=== PATIENT | male | born 1965 | race Caucasian/White ===

== ENCOUNTER 2020-01-16 19:40 | Inpatient (IN) ==
--- OUTSIDE RECORDS SUMMARY | 2020-01-16 19:44 | External Medical Summary | Continuity of Care Document ---
:1965 Author Name Geneva Oh, Provider Address Unavailable Unavailable , Care Team Providers Name Role Phone Unavailable Unavailable Unavailable JADA COOK Unavailable Unavailable Unavailable Unavailable Unavailable Problems Paroxysmal ventricular tachycardia (427.1) (I47.2) Cardiomyopathy (425.4) (I42.9) Cardiac defibrillator in place (V45.02) (Z95.810) Pre-operative cardiovascular examination (V72.81) (Z01.810) Hypertension (401.9) (I10) Paroxysmal atrial fibrillation (427.31) (I48.0) Hyperlipidemia (272.4) (E78.5) Obstructive sleep apnea (327.23) (G47.33) Sinus bradycardia (427.89) (R00.1) Esophageal reflux (530.81) (K21.9) Sarcoidosis (135) (D86.9) Allergies and Adverse Reactions No Known Drug Allergies (Allergy) Medications Carvedilol 25 MG Oral Tablet; TAKE 1 TABLET TWICE DAILY. , M .D. Refills: 0 Flecainide Acetate 100 MG Oral Tablet; TAKE 1 TABLET TWICE D AILY. , M.D. Quantity: 180 Refills: 3 Zocor 40 MG Oral Tablet; TAKE 1 TABLET DAILY AT BEDTIME. , M .D. Refills: 0 predniSONE TABS; TAKE 12.5 MG Daily , M.D. Refills: 0 NexIUM 40 MG Oral Capsule Delayed Release; TAKE 1 CAPSULE DA ESTHER. , M.D. Refills: 0 Provigil 200 MG Oral Tablet; TAKE 1 TABLET DAILY. , M.D. Refills: 0 Allopurinol 300 MG Oral Tablet; Take 1 tablet daily , M.D. Quantity: 90 Refills: 3 Procedures History of Implantable Cardioverter-Defibrillator Status: Completed Immunizations Immunizations not documented Family History Mother Family history of Hypertension (V17.49) Status: Active Father Family history of Sudden/Instantaneous Cardiac (V17.41 ) Status: Active Social History - Smoking Status Never smoked tobacco Plan of Treatment Planned Observations Planned Goals not documented Results No Known Results Results not documented
--- OUTSIDE RECORDS SUMMARY | 2020-01-16 19:44 | External Medical Summary | Continuity of Care Document ---
:1965 Author Name Geneva Oh, Provider Address Unavailable Unavailable , Care Team Providers Name Role Phone Unavailable Unavailable Unavailable JADA COOK Unavailable Unavailable Unavailable Unavailable Unavailable Problems Sarcoidosis (135) (D86.9) Esophageal reflux (530.81) (K21.9) Sinus bradycardia (427.89) (R00.1) Obstructive sleep apnea (327.23) (G47.33) Hyperlipidemia (272.4) (E78.5) Paroxysmal atrial fibrillation (427.31) (I48.0) Hypertension (401.9) (I10) Pre-operative cardiovascular examination (V72.81) (Z01.810) Cardiac defibrillator in place (V45.02) (Z95.810) Cardiomyopathy (425.4) (I42.9) Paroxysmal ventricular tachycardia (427.1) (I47.2) Allergies and Adverse Reactions No Known Drug [...]
--- NOTE | 2020-01-16 20:15 | Emergency Department Note ---
Impression & Plan AICD malfunction, HTN (hypertension), AICD (automatic cardioverter/defibrillator) present ED Provider Note NAME: MAYRA ORANTES AGE: 54 SEX: M : 1965 ARRIVES VIA: Walk-In INFORMANT: Patient ED PROVIDER(S): Abraham Chacon DO CHIEF COMPLAINT: Pacemaker is buzzing HPI: Patient is a 54-year-old male who presents the ER with a past medical history of sarcoidosis which involves the heart with an AICD ([facility]) who presents the ER for feeling his chest shake over top of the pacemaker. He has no other complaints at this time. He notes his pacemaker is on a recall. He denies any headache, chest pain, shortness of breath, nausea vomiting or diarrhea. He notes he was working outside all day today and had no symptoms. Patient follows with [facility] cardiology. [place]. ROS: See above HPI for pertinent positives & negatives. A total of 10 systems reviewed and were otherwise negative. PAST MEDICAL HISTORY:See Below PAST SURGICAL HISTORY:See Below FAMILY HISTORY:See Below SOCIAL HISTORY:See Below HOME MEDICATIONS:See Below ALLERGIES:See Below VITALS:See Below PHYSICAL EXAMINATION: GENERAL: Sitting up in bed, alert, well appearing, well nourished, no distress, non-toxic EYE EXAM: normal conjunctiva. OROPHARYNX: no exudate, no erythema, lips, buccal mucosa, and tongue normal and mucous membranes are moist NECK: supple, no nuchal rigidity, no adenopathy, non-tender CHEST: Pacemaker located in left upper chest wall LUNGS: Clear to auscultation. Normal chest wall mechanics HEART: no murmurs, S1 normal and S2 normal ABDOMEN: abdomen soft, non-tender, normo-active bowel sounds, no masses, no rebound or guarding. BACK: Back is symmetrical on inspection and there is no deformity, no midline tenderness, no CVA tenderness. SKIN: no rashes and no bruising UPPER EXTREMITIES: upper extremities are grossly normal. LOWER EXTREMITIES: No pitting edema. Calves are equal bilateral NEURO EXAM: Normal sensorium, cranial nerves II-XII grossly intact, normal speech, no gross weakness of arms, no gross weakness of legs. MEDICAL DECISION MAKING: Patient is a 54-year-old male with a past medical history of an AICD who presents the ER as he felt a buzzing over his left chest. Interrogation of his AICD and after discussion with Neri from [facility] he notes there is a lead advisory secondary to the high-voltage being out of range. Recommends admission. I discussed the case with the hospitalist and also discussed the case with cardiology to give him a heads up for planning for tomorrow. Labs show no significant leukocytosis or anemia. INR was unremarkable. BMP with slightly elevated chloride. LFTs bilirubin was unremarkable. Troponin was detectable but not positive at 0.036. He denies any chest pain or shortness of breath. Was updated bedside. Triage Nursing notes reviewed. Prior medical records reviewed Vital Signs: reviewed and remarkable for hypertensive Differential diagnosis: Differential diagnoses includes but is not limited to acute coronary syndrome, myocardial infarction, pericarditis, pulmonary embolus, aortic dissection, pneumonia, pneumothorax, musculoskeletal, shingles, esophageal. ER treatment provided: See below Diagnostics interpreted by me: ECG: Atrial paced rate of 60 Left axis T wave flattening in the septal leads DWI in the anterior leads No PVCs Improved ST wave changes from 2016/last EKG in system Cardiac Monitoring: An order was placed for continuous cardiac monitoring. The monitor shows a rate of 60 with paced rhythm. Laboratory studies: As stated above and show below. Imaging studies: Portable AP upright 1 view of the chest shows no focal infiltrate or pneumothorax per my read Consultation(s): Discussed with Neri from [facility] following interrogation of the pacemaker who notes that there is a lead advisory warning on the pacemaker. High-voltage lead is out of range. Recommends admission and interrogation by EP as it may not be functioning properly. Discussed with Dr. Cesar Cortes from [facility] cardiology who agreed with admission Discussed with patient hospitalist for admission. ED COURSE: Procedures: none Critical Care: None Past Med/Surg History Social History Smoking Status: Never smoker Preferred Language: Kiswahili Feels Safe at Home: Yes Allergies Allergies Allergy/AdvReac Type Severity Reaction Status Date / Time bee venom protein (honey bee) Allergy Severe ANAPHYLAXIS Verified 01/16/20 20:55 Home Meds Home Medications Medication Instructions Recorded Confirmed baclofen 10 mg PO TID PRN 01/16/20 01/16/20 carvedilol 25 mg PO BID 01/16/20 01/16/20 epinephrine [EpiPen] 0.3 mg IM DIRECTED PRN 01/16/20 01/16/20 flecainide 100 mg PO BID 01/16/20 01/16/20 modafinil 200 mg PO DAILY 01/16/20 01/16/20 omeprazole 20 mg PO DAILY PRN 01/16/20 01/16/20 prednisone 15 mg PO DAILY 01/16/20 01/16/20 rosuvastatin 40 mg PO QPM 01/16/20 01/16/20 sildenafil 100 mg PO DIRECTED PRN 01/16/20 01/16/20 Results & Data (ED) Vital Signs Vital Signs - 24 hr 01/16/20 19:43 01/16/20 20:00 01/16/20 20:09 Temperature 36.7 C Temperature Source Oral Pulse Rate 60 60 Respiratory Rate 18 22 Respiratory Effort / Characteristics Non-Labored Respiratory Depth Normal Blood Pressure 154/85 H Blood Pressure Mean 108 Pulse Oximetry 97 98 Oxygen Delivery Method Room Air Room Air Sepsis Recent Fever Within 48 Hours No Sepsis New/Unexplained Change in Mental Status No Sepsis Action Taken by Nursing No Action Required 01/16/20 20:10 01/16/20 20:20 01/16/20 20:26 Temperature Temperature Source Pulse Rate 60 60 Respiratory Rate 27 H 28 H Respiratory Effort / Characteristics Respiratory Depth Blood Pressure Blood Pressure Mean Pulse Oximetry 98 Oxygen Delivery Method Room Air Sepsis Recent Fever Within 48 Hours Sepsis New/Unexplained Change in Mental Status Sepsis Action Taken by Nursing 01/16/20 20:30 01/16/20 20:40 01/16/20 20:41 Temperature Temperature Source Pulse Rate 60 60 60 Respiratory Rate 18 13 19 Respiratory Effort / Characteristics Respiratory Depth Blood Pressure 155/87 H Blood Pressure Mean 98 Pulse Oximetry Oxygen Delivery Method Sepsis Recent Fever Within 48 Hours Sepsis New/Unexplained Change in Mental Status Sepsis Action Taken by Nursing 01/16/20 20:50 01/16/20 21:00 01/16/20 21:01 Temperature Temperature Source Pulse Rate 60 61 Respiratory Rate 19 16 15 Respiratory Effort / Characteristics Respiratory Depth Blood Pressure 150/95 H Blood Pressure Mean 97 Pulse Oximetry 96 Oxygen Delivery Method Sepsis Recent Fever Within 48 Hours Sepsis New/Unexplained Change in Mental Status Sepsis Action Taken by Nursing 01/16/20 21:10 01/16/20 21:24 Temperature Temperature Source Pulse Rate 60 Respiratory Rate 20 Respiratory Effort / Characteristics Respiratory Depth Blood Pressure Blood Pressure Mean Pulse Oximetry Oxygen Delivery Method Room Air Sepsis Recent Fever Within 48 Hours Sepsis New/Unexplained Change in Mental Status Sepsis Action Taken by Nursing Laboratory Data Result diagrams: 01/16/20 20:40 01/16/20 20:40 Lab Results 01/16/20 01/16/20 01/16/20 Range/Units 20:40 20:40 20:40 WBC 8.58 (4.8-10.8) K/uL RBC 4.36 L (4.7-6.1) M/uL Hgb 14.2 (14.0-18.0) g/dL Hct 41.5 L (42-52) % MCV 95.2 (80-100) fL MCH 32.6 (25-34) pg MCHC 34.2 (32-36) g/dL RDW Std Deviation 46.4 H (36.4-46.3) fL RDW Coeff of Farhad 13.5 (11.5-14.5) % Plt Count 247 (130-400) K/uL MPV 9.9 (7.4-10.4) fL Immature Gran % (Auto) 0.2 % Neut % (Auto) 75.3 % Lymph % (Auto) 14.2 % [place] % (Auto) 7.0 % Eos % (Auto) 3.1 % Baso % (Auto) 0.2 % Neut # (Auto) 6.45 (1.4-6.5) K/uL Lymph # (Auto) 1.22 (1.2-3.4) K/uL [place] # (Auto) 0.60 H (0.11-0.59) K/uL Eos # (Auto) 0.27 (0-0.5) K/uL Baso # (Auto) 0.02 (0-0.2) K/uL Immature Gran # (Auto) 0.02 (0.00-0.02) K/uL PT 10.6 (9.0-12.0) Seconds INR 1.0 (0.9-1.1) APTT 22.1 (21.0-31.0) Seconds PTT Ratio 0.8 Sodium 143 (136-145) mmol/L Potassium 3.7 (3.5-5.1) mmol/L Chloride 109 H (98-107) mmol/L Carbon Dioxide 27 (21-32) mmol/L Anion Gap 7.0 (3-11) BUN 26 H (7-18) mg/dl Creatinine 1.20 (0.6-1.4) mg/dl Est Cr Clr Drug Dosing 86.6 ml/min Est GFR ( Amer) 77.9 Est GFR (Non-Af Amer) 67.2 BUN/Creatinine Ratio 21.6 H (10-20) Glucose 79 (70-99) mg/dl Calcium 9.4 (8.5-10.1) mg/dl Total Bilirubin 0.6 (0.2-1) mg/dl AST 26 (15-37) U/L ALT 51 (12-78) U/L Alkaline Phosphatase 33 L (45-117) U/L Troponin I 0.036 (0-0.045) ng/ml Total Protein 7.4 (6.4-8.2) gm/dl Albumin 4.2 (3.4-5.0) gm/dl Globulin 3.2 (2.5-4.0) gm/dl Albumin/Globulin Ratio 1.3 (0.9-2) Lipase 105 (73-393) U/L Discharge Plan Visit Data Chief Complaint: Cardiac Assessment Stated Complaint: PACEMAKER BATTER IS RUNNING LOW ED Provider: Abraham Chacon Discharge Problem: AICD malfunction, HTN (hypertension), AICD (automatic cardioverter/defibrillator) present Discharge Instructions Interventions: ED Discharge Assessment Last Done: 01/16/20 21:24 Discharge Problem: AICD malfunction Qualifiers: Encounter type: initial encounter Qualified Code(s): T82.118A - Breakdown (mechanical) of other cardiac electronic device, initial encounter HTN (hypertension) Qualifiers: Hypertension type: unspecified Qualified Code(s): I10 - Essential (primary) hypertension
[2020-01-16 20:48] LABS: Basophils # (auto) 0.02 K/uL (0-0.2); Basophils % (auto) 0.2 %; Eosinophils # (auto) 0.27 K/uL (0-0.5); Eosinophils % (auto) 3.1 %; Hematocrit (blood only) 41.5 % (42-52); Hemoglobin 14.2 g/dL (14.0-18.0); Immature Granulocytes # (auto) 0.02 K/uL (0.00-0.02); Immature Granulocytes % (auto) 0.2 %; Lymphocytes # (auto) 1.22 K/uL (1.2-3.4); Lymphocytes % (auto) 14.2 %; Mean Corpuscular Hemoglobin 32.6 pg (25-34); Mean Corpuscular Hgb Conc 34.2 g/dL (32-36); Mean Corpuscular Volume 95.2 fL (80-100); Mean Platelet Volume 9.9 fL (7.4-10.4); Neutrophils # (auto) 6.45 K/uL (1.4-6.5); Neutrophils % (auto) 75.3 %; Platelet Count 247 K/uL (130-400); RDW Coefficient of Variation 13.5 % (11.5-14.5); RDW Standard Deviation 46.4 fL (36.4-46.3); Red Blood Count 4.36 M/uL (4.7-6.1); White Blood Count 8.58 K/uL (4.8-10.8)
[2020-01-16 20:58] LABS: Partial Thromboplastin Ratio 0.8; Partial Thromboplastin Time 22.1 Seconds (21.0-31.0); Prothrombin Time 10.6 Seconds (9.0-12.0)
[2020-01-16 21:04] LABS: Albumin Level 4.2 gm/dl (3.4-5.0); BUN Creatinine Ratio 21.6 (10-20); Calcium 9.4 mg/dl (8.5-10.1); Creatinine Clr Calc Pharmacy 86.6 ml/min; Est GFR (African American) 77.9; Est GFR (Non-African American) 67.2; Potassium 3.7 mmol/L (3.5-5.1)
[2020-01-16 21:09] LABS: Albumin Globulin Ratio 1.3 (0.9-2); Bilirubin,Total 0.6 mg/dl (0.2-1); Globulin 3.2 gm/dl (2.5-4.0); Total Protein 7.4 gm/dl (6.4-8.2); Troponin I 0.036 ng/ml (0-0.045)
--- NOTE | 2020-01-16 21:46 | History & Physical Report ---
Date of Service January 16, 2020 Assessment & Plan (1) AICD malfunction: (2) Cardiac sarcoidosis: (3) Nonischemic cardiomyopathy: Patient with history of cardiac sarcoidosis, diagnosed in 2006, followed at [facility], currently following w/Dr. Rice of [facility] cardiology -continue home prednisone, 12.5 mg daily for sarcoidosis -Presents with possible AICD malfunction, patient registered vibration over his chest, thought that maybe battery was running low -Cardiology consulted by ED provider, Dr. Shanks, will further evaluate w/ EP tomorrow -Continue to closely monitor on telemetry -Continue Coreg (4) Hyperlipidemia: -Continue home Crestor (5) Prediabetes: -Continue to monitor blood glucose levels (6) SHELL on CPAP: -CPAP at bedtime (7) Paroxysmal A-fib: -Continue home flecainide (8) Narcolepsy: -Continue home modafinil (9) Gout: -Continue home allopurinol DVT ppx - SCDs Code: Full Disposition : home when medically stable Admission and Anticipated Discharge Date Admission Date: January 16, 2020 History of Present Illness Chief Complaint: Possible AICD malfunction Primary Care Provider: Sean Madera MD 54-year-old male, with history of nonischemic cardiomyopathy secondary to cardiac sarcoidosis, diagnosed in 2006 (initially followed at [facility], currently follows with Dr. Rice of [facility] cardiology), status post dual- chamber ICD, paroxysmal A. fib, paroxysmal VT, hypertension, prediabetes, SHELL on CPAP, who presents with possible AICD malfunction. Patient was working outside today, and then later was doing laundry in the house when he noticed vibration over his chest, due to his pacemaker. He states this usually means that his battery is running low. He presented to the ED for evaluation. He otherwise did not feel any chest pain, palpitations, dizziness, lightheadedness, fevers or chills. Also denies any abdominal pain, nausea or vomiting. He denies exerting himself, and states that is his usual activity. Patient's device was interrogated, and ED provider discussed with tech from [facility] who noted that there is a lead advisory warning on the pacemaker. High-voltage lead is out of range. Recommended admission and interrogation by EP as it may not be functioning properly. ED provider also consulted cardiology, Dr. Shanks, who will be further evaluating the patient with EP tomorrow, and who agrees with the admission. Allergies Allergy/AdvReac Type Severity Reaction Status Date / Time bee venom protein (honey bee) Allergy Severe ANAPHYLAXIS Verified 01/16/20 20:55 Home Medications Home Medications Medication Instructions Recorded Confirmed Type baclofen 10 mg PO TID PRN 01/16/20 01/16/20 History carvedilol 25 mg PO BID 01/16/20 01/16/20 History epinephrine [EpiPen] 0.3 mg IM DIRECTED PRN 01/16/20 01/16/20 History flecainide 100 mg PO BID 01/16/20 01/16/20 History modafinil 200 mg PO DAILY 01/16/20 01/16/20 History omeprazole 20 mg PO DAILY PRN 01/16/20 01/16/20 History prednisone 15 mg PO DAILY 01/16/20 01/16/20 History rosuvastatin 40 mg PO QPM 01/16/20 01/16/20 History sildenafil 100 mg PO DIRECTED PRN 01/16/20 01/16/20 History Past Med/Surg History Medical History (Updated 01/16/20 @ 22:01 by Don Harrison MD) Cardiac sarcoidosis Gout Hyperlipidemia Narcolepsy Nonischemic cardiomyopathy SHELL on CPAP Paroxysmal A-fib Prediabetes Surgical History (Updated 01/16/20 @ 22:07 by Don Harrison MD) AICD (automatic cardioverter/defibrillator) present History of bronchoscopy History of carpal tunnel surgery Hx of appendectomy S/P hernia repair Family History (Updated 01/16/20 @ 22:04 by Don Harrison MD) Father , arrhythmia, at age 65 Arrhythmia Diabetes Hypertension Heart disease Social History Smoking Status: Never smoker Second Hand Exposure: No; Do You Dip or Chew Tobacco: No; Hx Alcohol Use: Yes Alcohol type: hard liquor Hx Substance Use: No Preferred Language: Pashto Communication Ability: Effective Investigator Welfare Required: No Beliefs That Will Affect Care: None Current Living Situation: Family Other Information That Helps Us Care for You: No Feels Safe at Home: Yes Safety Concerns: Feels Safe At This Time Review of Systems Review of Systems: All systems reviewed & are unremarkable except as noted in HPI & below Constitutional: no fever and no chills Eyes: no problem reported Ear, Nose, Mouth, Throat: no problem reported Respiratory: no cough, no dyspnea and no dyspnea on exertion Cardiovascular: no chest pain, no palpitations and no edema Gastrointestinal: no abdominal pain, no nausea and no vomiting Genitourinary: no problem reported Musculoskeletal: no problem reported Integumentary: no problem reported Neurologic: no problem reported Psychiatric: no problem reported Endocrine: no problem reported Hematologic / Lymphatic: no problem reported Allergy / Immunological: no problem reported Physical Exam Physical Exam: middle aged male laying in bed, in NAD Constitutional: WD/WN, vitals as above no acute distress and not ill appearing Eyes: PERRL, conjunctivae normal, anicteric sclerae EOM intact bilaterally ENMT: external ear and nose normal, oropharynx normal Neck: trachea midline, no thyromegaly normal visual inspection Respiratory: normal respiratory effort, lungs clear to auscultation Auscultation: no crackles, no rhonchi and no wheezes Cardiovascular: RRR, no murmur, no edema Chest (Breasts): Chest: + pacemaker Gastrointestinal (Abdomen): Inspection/Auscultation: abdomen normal to inspection and normal bowel sounds; abdomen not distended Percussion/Palpation: abdomen soft; abdomen nontender, no guarding and abdomen not rigid Musculoskeletal: no cyanosis or clubbing, extremities motor strength 5/5 Head/Neck/Chest: normocephalic, head atraumatic and neck supple Extremities: extremities normal to inspection Skin: no rashes, warm and dry no lesions and no ulcers Neurologic: PERRL, EOMI, accommodation nl, no face palsy, no dysarthria moves all extremities Psychiatric: A+Ox3, euthymic affect Genitourinary: no CVA tenderness Results & Data Results & Data ([facility]) Vital Signs (Past 12 Hours) Vital Signs Temp Pulse Resp BP Pulse Ox 01/16/20 21:10 60 20 01/16/20 21:01 61 15 150/95 H 96 01/16/20 21:00 60 16 01/16/20 20:50 19 01/16/20 20:41 60 19 01/16/20 20:40 60 13 155/87 H 01/16/20 20:30 60 18 01/16/20 20:26 98 01/16/20 20:20 60 28 H 01/16/20 20:10 60 27 H 01/16/20 20:09 98 01/16/20 20:00 60 22 01/16/20 19:43 36.7 C 60 18 154/85 H 97 Laboratory Results 01/16/20 01/16/20 01/16/20 Range/Units 20:40 20:40 20:40 WBC 8.58 (4.8-10.8) K/uL RBC 4.36 L (4.7-6.1) M/uL Hgb 14.2 (14.0-18.0) g/dL Hct 41.5 L (42-52) % MCV 95.2 (80-100) fL MCH 32.6 (25-34) pg MCHC 34.2 (32-36) g/dL RDW Std Deviation 46.4 H (36.4-46.3) fL RDW Coeff of Farhad 13.5 (11.5-14.5) % Plt Count 247 (130-400) K/uL MPV 9.9 (7.4-10.4) fL Immature Gran % (Auto) 0.2 % Neut % (Auto) 75.3 % Lymph % (Auto) 14.2 % [place] % (Auto) 7.0 % Eos % (Auto) 3.1 % Baso % (Auto) 0.2 % Neut # (Auto) 6.45 (1.4-6.5) K/uL Lymph # (Auto) 1.22 (1.2-3.4) K/uL [place] # (Auto) 0.60 H (0.11-0.59) K/uL Eos # (Auto) 0.27 (0-0.5) K/uL Baso # (Auto) 0.02 (0-0.2) K/uL Immature Gran # (Auto) 0.02 (0.00-0.02) K/uL PT 10.6 (9.0-12.0) Seconds INR 1.0 (0.9-1.1) APTT 22.1 (21.0-31.0) Seconds PTT Ratio 0.8 Sodium 143 (136-145) mmol/L Potassium 3.7 (3.5-5.1) mmol/L Chloride 109 H (98-107) mmol/L Carbon Dioxide 27 (21-32) mmol/L Anion Gap 7.0 (3-11) BUN 26 H (7-18) mg/dl Creatinine 1.20 (0.6-1.4) mg/dl Est Cr Clr Drug Dosing 86.6 ml/min Est GFR ( Amer) 77.9 Est GFR (Non-Af Amer) 67.2 BUN/Creatinine Ratio 21.6 H (10-20) Glucose 79 (70-99) mg/dl Calcium 9.4 (8.5-10.1) mg/dl Magnesium 2.1 (1.8-2.4) mg/dl Total Bilirubin 0.6 (0.2-1) mg/dl AST 26 (15-37) U/L ALT 51 (12-78) U/L Alkaline Phosphatase 33 L (45-117) U/L Troponin I 0.036 (0-0.045) ng/ml Total Protein 7.4 (6.4-8.2) gm/dl Albumin 4.2 (3.4-5.0) gm/dl Globulin 3.2 (2.5-4.0) gm/dl Albumin/Globulin Ratio 1.3 (0.9-2) Lipase 105 (73-393) U/L Diagnostic Findings CXR reviewed Code Status & VTE Plan VTE Prophylaxis Plan VTE Prophylaxis will be ordered: Yes (1) AICD malfunction Encounter type: initial encounter Qualified Code(s): T82.118A - Breakdown (mechanical) of other cardiac electronic device, initial encounter
[2020-01-16] MEDS ORDERED: POTASSIUM CHLORIDE 20 MEQ TABCR PO STA (21:47)
[2020-01-16 21:51] LABS: Magnesium 2.1 mg/dl (1.8-2.4)
[2020-01-16] MEDS ORDERED: ACETAMINOPHEN 325 MG TAB PO PRN (22:27)
[2020-01-16] MEDS ORDERED: PANTOprazole 40 MG TAB PO PRN (22:46)
[2020-01-16] MEDS: FLECAINIDE ACETATE 100 MG TABLET PO SCH (23:04)
[2020-01-16] MEDS: carvediloL 25 MG TAB PO SCH (23:04)
[2020-01-17 07:17] LABS: BUN Creatinine Ratio 24.2 (10-20); Creatinine Clr Calc Pharmacy 100.5 ml/min; Est GFR (African American) 99.5; Est GFR (Non-African American) 85.8; Magnesium 2.2 mg/dl (1.8-2.4); Potassium 3.6 mmol/L (3.5-5.1)
--- NOTE | 2020-01-17 07:29 | XRay Report ---
SINGLE VIEW CHEST CLINICAL HISTORY: Atypical chest pain. FINDINGS: An AP, portable, upright chest radiograph is compared to study dated 02/27/2014. The examina tion is degraded by portable technique and apical lordotic positioning. A 2-lead cardiac pacemaker is unchanged in position and partially obscures the left mid chest. The heart is enlarged. The pulmonar y vasculature is noncongested. Pleural thickening versus subpleural fat deposition at the left latera l lung base is unchanged from 2014. No airspace consolidation or large pleural effusion is identified . No pneumothorax is seen. The bony thorax is grossly intact. IMPRESSION: Cardiomegaly and cardiac pacemaker. There is no radiographic evidence of congestive failu re. ACT 112: Negative or not required by law. Electronically signed by: Michel Horne M.D. 01/17/2020 7:27 AM
[2020-01-17] MEDS: carvediloL 25 MG TAB PO SCH ×2 (09:43→19:50)
[2020-01-17] MEDS: FLECAINIDE ACETATE 100 MG TABLET PO SCH ×2 (09:44→19:49)
[2020-01-17] MEDS: predniSONE 5 MG TAB PO SCH (09:44)
[2020-01-17] MEDS: allopurinoL 100 MG TAB PO SCH (09:45)
[2020-01-17] MEDS: modafiniL 100 MG TAB PO SCH (09:59)
--- NOTE | 2020-01-17 10:26 | Cardiology Consultation ---
Date of Consultation January 17, 2020 Assessment & Plan (1) AICD malfunction: (2) Sarcoidosis: (3) Paroxysmal A-fib: Electrophysiology consulted for further evaluation of ventricular lead malfunction/elevated impedance. I have concerns regarding possible lead fracture. He has a [employer] device with Riata lead recall. Continue current cardiovascular medications including flecainide, carvedilol, and rosuvastatin. History of Present Illness Reason for Consultation: Elevated ICD ventricular lead impedance Requesting Physician: Dr. Reid Attending Physician: Ti Reid MD History of Present Illness 54-year-old male presented to the emergency department with sensation of "ICD vibrating". Patient reports a similar sensation with low battery in the past. Feeling well from a cardiovascular standpoint. Working in his yard all day Friday. No chest discomfort or unusual shortness of breath. Denies palpitations, lightheadedness, dizziness, syncope, near syncope, or ICD discharges. No orthopnea, PND, lower extremity edema, or claudication. Denies any recent medication changes or noncompliance. Offers no concerns/complaints this time. Allergies Allergy/AdvReac Type Severity Reaction Status Date / Time bee venom protein (honey bee) Allergy Severe ANAPHYLAXIS Verified 01/16/20 20:55 Home Medications Home Medications Medication Instructions Recorded Confirmed Type baclofen 10 mg PO TID PRN 01/16/20 01/16/20 History carvedilol 25 mg PO BID 01/16/20 01/16/20 History epinephrine [EpiPen] 0.3 mg IM DIRECTED PRN 01/16/20 01/16/20 History flecainide 100 mg PO BID 01/16/20 01/16/20 History modafinil 200 mg PO DAILY 01/16/20 01/16/20 History omeprazole 20 mg PO DAILY PRN 01/16/20 01/16/20 History prednisone 15 mg PO DAILY 01/16/20 01/16/20 History rosuvastatin 40 mg PO QPM 01/16/20 01/16/20 History sildenafil 100 mg PO DIRECTED PRN 01/16/20 01/16/20 History Patient History Medical History Cardiac sarcoidosis Gout Hyperlipidemia Narcolepsy Nonischemic cardiomyopathy SHELL on CPAP Paroxysmal A-fib Prediabetes Surgical History AICD (automatic cardioverter/defibrillator) present History of bronchoscopy History of carpal tunnel surgery Hx of appendectomy S/P hernia repair Family History Father , arrhythmia, at age 65 Arrhythmia Diabetes Hypertension Heart disease Social History Smoking Status: Never smoker Second Hand Exposure: No; Do You Dip or Chew Tobacco: No; Hx Alcohol Use: Yes Alcohol type: hard liquor Hx Substance Use: No Preferred Language: Irish Communication Ability: Effective Set Up Mechanic Heading Machines Required: No Beliefs That Will Affect Care: None Current Living Situation: Family Other Information That Helps Us Care for You: No Feels Safe at Home: Yes Safety Concerns: Feels Safe At This Time Review of Systems Review of Systems: All systems reviewed & are unremarkable except as noted in HPI & below Physical Exam Constitutional: well developed and well nourished; no acute distress and not ill appearing Eyes: PERRL, conjunctivae normal, anicteric sclerae Respiratory: normal respiratory effort, lungs clear to auscultation Auscultation: no crackles, no rales, no rhonchi and no wheezes Cardiovascular: Rate/Rhythm: regular rate and regular rhythm Heart Sounds: normal S1 and normal S2; no gallop, no murmur and no cardiac rub Palpation: normal PMI Vessels: radial pulses present; no JVD and no carotid bruit Extremities: normal capillary refill; no edema Gastrointestinal (Abdomen): Inspection/Auscultation: abdomen normal to inspection and normal bowel sounds; abdomen not distended Percussion/Palpation: abdomen soft; abdomen nontender, no guarding and abdomen not rigid Musculoskeletal: Head/Neck/Chest: normocephalic and head atraumatic Extremities: strength 5/5 throughout; no cyanosis, no clubbing and no petechiae Skin: no rashes, warm and dry Neurologic: CN's II-XI intact bilaterally and moves all extremities; no focal motor deficits Speech / Cognition: normal speech Psychiatric: A+Ox3, euthymic affect Results & Data ([facility]) Vital Signs (Past 12 Hours) Vital Signs Temp Pulse Pulse Resp BP Pulse Ox 01/17/20 07:28 37.0 C 58 L 18 131/59 L 97 01/17/20 03:25 60 18 95 01/17/20 03:18 36.4 C L 57 L 18 129/81 98 01/17/20 00:55 62 01/16/20 23:12 36.6 C 60 18 138/84 95 01/16/20 22:51 62 01/16/20 22:50 60 16 96 (1) AICD malfunction Encounter type: initial encounter Qualified Code(s): T82.118A - Breakdown (mechanical) of other cardiac electronic device, initial encounter
--- NOTE | 2020-01-17 13:26 | Hospitalist Progress Note ---
Date of Service January 17, 2020 Assessment & Plan (1) AICD malfunction: (2) Cardiac sarcoidosis: (3) Nonischemic cardiomyopathy: Patient with history of cardiac sarcoidosis, diagnosed in 2006, followed at [facility], currently following w/Dr. Rice of [facility] cardiology -continue home prednisone, 12.5 mg daily for sarcoidosis -Presents with possible AICD malfunction Possible ventricular lead malfunction/elevated impedance, question lead fracture -Ict Help Desk Technician consulted Case being discussed with company doctor Continue usual carvedilol, flecainide (4) Hyperlipidemia: -Continue home Crestor (5) Prediabetes: -Continue to monitor blood glucose levels (6) SHELL on CPAP: -CPAP at bedtime (7) Paroxysmal A-fib: -Continue home flecainide (8) Narcolepsy: -Continue home modafinil (9) Gout: -Continue home allopurinol DVT ppx - SCDs Code: Full Disposition : home when medically stable Admission and Anticipated Discharge Date Admission Date: January 16, 2020 Subjective Follow-up for AICD malfunction Seen resting in bed, comfortable, no distress Denies chest pain, palpitations, dizziness, shortness of breath No firing of AICD noted jet inspector reviewed Denies any other symptoms Review of Systems Review of Systems: All systems reviewed & are unremarkable except as noted in HPI & below Physical Exam Physical Exam: General- oriented x 3, not in distress, speaks in sentences with no effort or accessory muscle use Head- atraumatic Eyes- PERRL, EOMI, anicteric ENT- oropharynx clear Neck- supple, no JVD, no adenopathy, no thyromegaly; carotids +2/2, no bruits appreciated Lungs- clear to auscultation bilaterally, no rales/wheezes Heart- normal rate, regular rhythm; no murmur, no gallop, no rub appreciated Pacemaker in place left chest wall-no signs of infection Abdomen- normal bowel sounds, nondistended, soft, nontender, no masses or hepatosplenomegaly Extremities- no pretibial edema, no calf tenderness; peripheral pulses intact Neuro- alert, oriented x 3; CN 2-12 grossly intact; motor 5/5 bilaterally;sensation 100% on all extremities; no other gross focal neurologic deficits Skin- warm & dry Results & Data Results & Data ([facility]) Vital Signs (Past 12 Hours) Vital Signs Temp Pulse Pulse Resp BP Pulse Ox 01/17/20 12:18 36.9 C 62 22 128/74 95 01/17/20 07:28 37.0 C 58 L 18 131/59 L 97 01/17/20 03:25 60 18 95 01/17/20 03:18 36.4 C L 57 L 18 129/81 98 Laboratory Results Laboratory Results - last 24 hr 01/16/20 01/16/20 01/16/20 20:40 20:40 20:40 WBC 8.58 RBC 4.36 L Hgb 14.2 Hct 41.5 L MCV 95.2 MCH 32.6 MCHC 34.2 RDW Std Deviation 46.4 H RDW Coeff of Farhad 13.5 Plt Count 247 MPV 9.9 Immature Gran % (Auto) 0.2 Neut % (Auto) 75.3 Lymph % (Auto) 14.2 [place] % (Auto) 7.0 Eos % (Auto) 3.1 Baso % (Auto) 0.2 Neut # (Auto) 6.45 Lymph # (Auto) 1.22 [place] # (Auto) 0.60 H Eos # (Auto) 0.27 Baso # (Auto) 0.02 Immature Gran # (Auto) 0.02 PT 10.6 INR 1.0 APTT 22.1 PTT Ratio 0.8 Sodium 143 Potassium 3.7 Chloride 109 H Carbon Dioxide 27 Anion Gap 7.0 BUN 26 H Creatinine 1.20 Est Cr Clr Drug Dosing 86.6 Est GFR ( Amer) 77.9 Est GFR (Non-Af Amer) 67.2 BUN/Creatinine Ratio 21.6 H Glucose 79 Calcium 9.4 Magnesium 2.1 Total Bilirubin 0.6 AST 26 ALT 51 Alkaline Phosphatase 33 L Troponin I 0.036 Total Protein 7.4 Albumin 4.2 Globulin 3.2 Albumin/Globulin Ratio 1.3 Lipase 105 Hepatitis C Ab Screen 01/17/20 01/17/20 05:57 05:57 WBC RBC Hgb Hct MCV MCH MCHC RDW Std Deviation RDW Coeff of Farhad Plt Count MPV Immature Gran % (Auto) Neut % (Auto) Lymph % (Auto) [place] % (Auto) Eos % (Auto) Baso % (Auto) Neut # (Auto) Lymph # (Auto) [place] # (Auto) Eos # (Auto) Baso # (Auto) Immature Gran # (Auto) PT INR APTT PTT Ratio Sodium 143 Potassium 3.6 Chloride 109 H Carbon Dioxide 28 Anion Gap 6.0 BUN 24 H Creatinine 0.98 Est Cr Clr Drug Dosing 100.5 Est GFR ( Amer) 99.5 Est GFR (Non-Af Amer) 85.8 BUN/Creatinine Ratio 24.2 H Glucose 83 Calcium 9.0 Magnesium 2.2 Total Bilirubin AST ALT Alkaline Phosphatase Troponin I Total Protein Albumin Globulin Albumin/Globulin Ratio Lipase Hepatitis C Ab Screen Neg (1) AICD malfunction Encounter type: initial encounter Qualified Code(s): T82.118A - Breakdown (mechanical) of other cardiac electronic device, initial encounter
[2020-01-17] MEDS ORDERED: PROPOFOL IV EMULSION 10 MG/ML 20 ML VIAL IV ONE (16:19)
--- NOTE | 2020-01-17 16:27 | Anesthesiology Consultation ---
Date of Service January 17, 2020 Assessment & Plan (1) Encounter for pre-operative examination: Chart Review Chart Review: Acceptable Risk for Surgery Consults Requested none ASA ASA4 Proposed Anesthesia Anesthesia Type: MAC Risk / Benefits Reviewed With: PT / POA / Parent / Guardian, Accepts Plan and Informed Consent Obtained History Surgery Operation Date: 01/17/20 16:15 Proposed Procedures p Cardioversion - Erickson Fountain MD Height/Weight Height: 5 ft 11 in Weight: 98.1 kg Allergies Allergy/AdvReac Type Severity Reaction Status Date / Time bee venom protein (honey bee) Allergy Severe ANAPHYLAXIS Verified 01/16/20 20:55 Medications Home Medications Medication Instructions Recorded Confirmed Last Taken baclofen 10 mg PO TID PRN 01/16/20 01/16/20 Unknown carvedilol 25 mg PO BID 01/16/20 01/16/20 01/16/20 08:00 epinephrine [EpiPen] 0.3 mg IM DIRECTED PRN 01/16/20 01/16/20 Unknown flecainide 100 mg PO BID 01/16/20 01/16/20 01/16/20 08:00 modafinil 200 mg PO DAILY 01/16/20 01/16/20 01/16/20 omeprazole 20 mg PO DAILY PRN 01/16/20 01/16/20 Unknown prednisone 15 mg PO DAILY 01/16/20 01/16/20 01/16/20 rosuvastatin 40 mg PO QPM 01/16/20 01/16/20 01/15/20 sildenafil 100 mg PO DIRECTED PRN 01/16/20 01/16/20 Unknown Active Medications Generic Name Dose Route Start Last Admin Trade Name Kimberly PRN Reason Stop Dose Admin Allopurinol 100 mg 01/17/20 09:00 01/17/20 09:45 Zyloprim PO 02/16/20 08:59 100 mg QAM ABHILASH Administration Carvedilol 25 mg 01/16/20 22:27 01/17/20 09:43 Coreg PO 02/15/20 22:26 25 mg BID ABHILASH Administration Flecainide Acetate 100 mg 01/16/20 22:27 01/17/20 09:44 Tambocor PO 02/15/20 22:26 100 mg BID ABHILASH Administration Modafinil 200 mg 01/17/20 09:00 01/17/20 09:59 Provigil PO 02/16/20 08:59 200 mg DAILY ABHILASH Administration Pantoprazole Sodium 40 mg 01/16/20 22:46 01/17/20 09:45 Protonix PO 02/15/20 22:45 40 mg DAILY PRN Administration DYSPEPSIA/INDIGESTION Prednisone 12.5 mg 01/17/20 09:00 01/17/20 09:44 Prednisone PO 02/16/20 08:59 12.5 mg DAILY ABHILASH Administration Past Medical History Medical History Cardiac sarcoidosis Gout Hyperlipidemia Narcolepsy Nonischemic cardiomyopathy SHELL on CPAP Paroxysmal A-fib Prediabetes Exercise / Class Metabolic Activity II 4-5 Yardwork/Stairs/Walk up hill Past Family History Family History Father , arrhythmia, at age 65 Arrhythmia Diabetes Hypertension Heart disease Past Surgical History Surgical History AICD (automatic cardioverter/defibrillator) present History of bronchoscopy History of carpal tunnel surgery Hx of appendectomy S/P hernia repair Past Anesthesia History No Hx of Anesthesia Complications and No Family Hx of Anesthesia Complications History of PONV No Hx of PONV and No Hx of Motion Sickness Social History Smoking Status: Never smoker Do You Dip or Chew Tobacco: No Hx Alcohol Use: Yes Alcohol type: hard liquor alcohol intake frequency: a few times a month Hx Substance Use: No substance use type: does not use Physical Exam Vital Signs Last Vital Signs Temp 97.9 F 01/17/20 15:26 Pulse 60 01/17/20 16:14 Resp 14 01/17/20 16:14 BP 144/92 H 01/17/20 16:14 Pulse Ox 96 01/17/20 16:14 ENMT Mouth: + chipped teeth (Lower front) Thyromental Distance: > or= 3.5 Finger Breadths Mallampati Class: III Neck normal visual inspection Respiratory normal respiratory effort Auscultation: lungs clear to auscultation bilaterally Cardiovascular Rate/Rhythm: regular rate and regular rhythm Testing Laboratory Results 01/16/20 20:40 01/17/20 05:57 PT 10.6 Seconds (9.0-12.0) 01/16/20 20:40 INR 1.0 (0.9-1.1) 01/16/20 20:40 APTT 22.1 Seconds (21.0-31.0) 01/16/20 20:40
--- NOTE | 2020-01-17 16:46 | Anesthesiology Progress Note ---
Date of Service January 17, 2020 Anesthesia Post Procedure Vital Signs Vital Signs: Temp Pulse Pulse Pulse Resp BP BP 01/17/20 16:41 77 16 137/84 01/17/20 16:14 60 14 144/92 H 01/17/20 16:00 60 01/17/20 15:26 97.9 F 59 L 18 128/83 01/17/20 12:18 98.4 F 62 22 128/74 01/17/20 08:00 60 01/17/20 07:28 98.6 F 58 L 18 131/59 L 01/17/20 03:25 60 18 01/17/20 03:18 97.5 F L 57 L 18 129/81 01/17/20 00:55 62 01/16/20 23:12 97.9 F 60 18 138/84 01/16/20 22:51 62 01/16/20 22:50 60 16 01/16/20 21:46 97.9 F 76 18 01/16/20 21:10 60 20 01/16/20 21:01 61 15 150/95 H 01/16/20 21:00 60 16 01/16/20 20:50 19 01/16/20 20:41 60 19 01/16/20 20:40 60 13 155/87 H 01/16/20 20:30 60 18 01/16/20 20:26 01/16/20 20:20 60 28 H 01/16/20 20:10 60 27 H 01/16/20 20:09 01/16/20 20:00 60 22 01/16/20 19:43 98.1 F 60 18 154/85 H BP Pulse Ox 01/17/20 16:41 98 01/17/20 16:14 96 01/17/20 16:00 01/17/20 15:26 94 01/17/20 12:18 95 01/17/20 08:00 01/17/20 07:28 97 01/17/20 03:25 95 01/17/20 03:18 98 01/17/20 00:55 01/16/20 23:12 95 01/16/20 22:51 01/16/20 22:50 96 01/16/20 21:46 153/76 H 95 01/16/20 21:10 01/16/20 21:01 96 01/16/20 21:00 01/16/20 20:50 01/16/20 20:41 01/16/20 20:40 01/16/20 20:30 01/16/20 20:26 98 01/16/20 20:20 01/16/20 20:10 01/16/20 20:09 98 01/16/20 20:00 01/16/20 19:43 97 Transfer of Care Handoff Completed per policy Notes Mental Status: alert / awake / arousable and participated in evaluation Patient Amnestic to Procedure: Yes Nausea / Vomiting: adequately controlled Pain: adequately controlled Airway Patency, RR, SpO2: stable & adequate BP & HR: stable & adequate Hydration State: stable & adequate Anesthetic Complications: no major complications apparent and Pt Satisfied with anesthetic care
--- NOTE | 2020-01-17 17:15 | Cardiology Consultation ---
Date of Consultation January 17, 2020 Assessment & Plan (1) AICD malfunction: Patient appears to have an externalized conductor on the single view x-ray obtained at the time of admission. His lead is known to be on recall for this exact abnormality. It is unclear how this plays a role in his abnormal impedance readings, but the 2 are likely related. Unfortunately, with defibrillation threshold testing and delivery of high voltage across the lead, the impedance was quite high. This would suggest that the lead is not reliable. Given his history of appropriate defibrillation, he would be advised to have a new lead placed. Simply adding a new defibrillation lead is an option. However, this would result in an abandoned lead which would preclude any future use of MRI. Given his young age and the utility of MRI in the setting of his known cardiac condition, the I propose the option of lead extraction in order to provide him with an MRI compatible device. Unfortunately, his atrial lead is also incompatible with MRI and according to the manufacture not likely to be approved in a retrograde fashion. As such, he would require a total system extraction and reimplantation with an MRI compatible lead. After discussion with the patient and his , he believes this is actually the best option. He would like to have this procedure done at a larger institution, specifically the [facility]. While I do not believe the patient can be transferred directly to the [facility], it may be possible to discharge him with follow up at the [facility]. He will need some form of adequate protection against cardiac arrest in the setting of his device malfunction while awaiting any procedure. This could be accomplished with a wearable defibrillator. (2) Cardiac sarcoidosis: According to the patient he has preserved LV systolic function. He is on immunosuppression. He is not appear to be overtly symptomatic. No evidence of decompensated heart failure. History of Present Illness Reason for Consultation: ICD malfunction Requesting Physician: Krystal Attending Physician: Ti Reid MD History of Present Illness The patient is a 54-year-old gentleman with a history of cardiac sarcoid and prior cardiac arrest who had previously undergone implantation of dual-chamber ICD originally in 2006. Patient underwent a generator change of a [employer]as dual-chamber ICD in 2012. Yesterday the patient noted a vibration around the site of his device implant the left pectoral area. He presented to the emergency room for evaluation where he was discovered to have an alert involving the high voltage lead. He was admitted for observation. In general, he has been feeling well. He did not report any current symptoms suggestive of an acute coronary syndrome or decompensated heart failure. He has not had symptoms of chest discomfort, lightheadedness, palpitations or syncope. He does report a remote history of therapy from his device. He reports being defibrillated on 5 separate occasions including defibrillation threshold testing at the time of his recent generator change. He also reports a history of inappropriate therapies due to device programming. Allergies Allergy/AdvReac Type Severity Reaction Status Date / Time bee venom protein (honey bee) Allergy Severe ANAPHYLAXIS Verified 01/16/20 20:55 Home Medications Home Medications Medication Instructions Recorded Confirmed Type baclofen 10 mg PO TID PRN 01/16/20 01/16/20 History carvedilol 25 mg PO BID 01/16/20 01/16/20 History epinephrine [EpiPen] 0.3 mg IM DIRECTED PRN 01/16/20 01/16/20 History flecainide 100 mg PO BID 01/16/20 01/16/20 History modafinil 200 mg PO DAILY 01/16/20 01/16/20 History omeprazole 20 mg PO DAILY PRN 01/16/20 01/16/20 History prednisone 15 mg PO DAILY 01/16/20 01/16/20 History rosuvastatin 40 mg PO QPM 01/16/20 01/16/20 History sildenafil 100 mg PO DIRECTED PRN 01/16/20 01/16/20 History Patient History Medical History Cardiac sarcoidosis Gout Hyperlipidemia Narcolepsy Nonischemic cardiomyopathy SHELL on CPAP Paroxysmal A-fib Prediabetes Surgical History AICD (automatic cardioverter/defibrillator) present History of bronchoscopy History of carpal tunnel surgery Hx of appendectomy S/P hernia repair Family History Father , arrhythmia, at age 65 Arrhythmia Diabetes Hypertension Heart disease Social History Smoking Status: Never smoker Second Hand Exposure: No; Do You Dip or Chew Tobacco: No; Hx Alcohol Use: Yes Alcohol type: hard liquor Hx Substance Use: No Preferred Language: Maori Communication Ability: Effective Mechanical Technician Required: No Beliefs That Will Affect Care: None Current Living Situation: Family Other Information That Helps Us Care for You: No Feels Safe at Home: Yes Safety Concerns: Feels Safe At This Time Review of Systems Review of Systems: All systems reviewed & are unremarkable except as noted in HPI & below Physical Exam Physical Exam: The patient is alert and oriented. Mood and affect appeared normal. He answered all questions appropriately. HEENT: Pupils are equal and reactive to light and accommodation. Extraocular movements are intact. The sclerae are anicteric. Neuro: Cranial nerves intact Neck: Patient's neck is supple. He has palpable carotid pulses bilaterally without bruits on auscultation. There is no evidence of jugular venous distention. The thyroid is not enlarged. Lungs: Clear to auscultation bilaterally. He has good air movement without use of accessory muscles. No rales wheezes or rhonchi. Chest: Well-healed ICD implant site left upper pectoral area. Cardiac: Heart demonstrates a regular rate and rhythm. Normal S1 and S2. No murmurs on examination. Pulses: The patient has palpable radial pulses bilaterally that are equal in intensity Extremities: There was no evidence of hypoperfusion. There is no cyanosis or clubbing. There is no edema. Skin: I did not appreciate any rashes on examination today. Results & Data ([facility]) Vital Signs (Past 12 Hours) Vital Signs Temp Pulse Pulse Pulse Resp BP Pulse Ox 01/17/20 16:53 36.7 C 64 16 143/86 H 95 01/17/20 16:41 77 16 137/84 98 01/17/20 16:14 60 14 144/92 H 96 01/17/20 16:00 60 01/17/20 15:26 36.6 C 59 L 18 128/83 94 01/17/20 12:18 36.9 C 62 22 128/74 95 01/17/20 08:00 60 01/17/20 07:28 37.0 C 58 L 18 131/59 L 97 Laboratory Results Abnormal Lab Results 01/16/20 01/16/20 01/16/20 20:40 20:40 20:40 WBC 8.58 RBC 4.36 L Hgb 14.2 Hct 41.5 L MCV 95.2 MCH 32.6 MCHC 34.2 RDW Std Deviation 46.4 H RDW Coeff of Farhad 13.5 Plt Count 247 MPV 9.9 Immature Gran % (Auto) 0.2 Neut % (Auto) 75.3 Lymph % (Auto) 14.2 [place] % (Auto) 7.0 Eos % (Auto) 3.1 Baso % (Auto) 0.2 Neut # (Auto) 6.45 Lymph # (Auto) 1.22 [place] # (Auto) 0.60 H Eos # (Auto) 0.27 Baso # (Auto) 0.02 Immature Gran # (Auto) 0.02 PT 10.6 INR 1.0 APTT 22.1 PTT Ratio 0.8 Sodium 143 Potassium 3.7 Chloride 109 H Carbon Dioxide 27 Anion Gap 7.0 BUN 26 H Creatinine 1.20 Est Cr Clr Drug Dosing 86.6 Est GFR ( Amer) 77.9 Est GFR (Non-Af Amer) 67.2 BUN/Creatinine Ratio 21.6 H Glucose 79 Calcium 9.4 Magnesium 2.1 Total Bilirubin 0.6 AST 26 ALT 51 Alkaline Phosphatase 33 L Troponin I 0.036 Total Protein 7.4 Albumin 4.2 Globulin 3.2 Albumin/Globulin Ratio 1.3 Lipase 105 Hepatitis C Ab Screen 01/17/20 01/17/20 05:57 05:57 WBC RBC Hgb Hct MCV MCH MCHC RDW Std Deviation RDW Coeff of Farhad Plt Count MPV Immature Gran % (Auto) Neut % (Auto) Lymph % (Auto) [place] % (Auto) Eos % (Auto) Baso % (Auto) Neut # (Auto) Lymph # (Auto) [place] # (Auto) Eos # (Auto) Baso # (Auto) Immature Gran # (Auto) PT INR APTT PTT Ratio Sodium 143 Potassium 3.6 Chloride 109 H Carbon Dioxide 28 Anion Gap 6.0 BUN 24 H Creatinine 0.98 Est Cr Clr Drug Dosing 100.5 Est GFR ( Amer) 99.5 Est GFR (Non-Af Amer) 85.8 BUN/Creatinine Ratio 24.2 H Glucose 83 Calcium 9.0 Magnesium 2.2 Total Bilirubin AST ALT Alkaline Phosphatase Troponin I Total Protein Albumin Globulin Albumin/Globulin Ratio Lipase Hepatitis C Ab Screen Neg Diagnostic Findings Chest x-ray the time of admission did not reveal any acute cardiopulmonary process. Interrogation of his device did reveal some abnormal impedance values primarily involving the RV coil. Defibrillation threshold testing was performed which revealed high voltage impedance greater than 200 Ohms when delivering 25 joules. PG Care Time/CCT Total # of Minutes Spent Total Time Spent with Patient: Total time spent is greater than 50% in coordination of care (as documented) at patient's floor/unit and/or counseling patient: Coding Level of Care Code 69858 Inpt Consult Level 4 Diagnoses AICD malfunction T82.118A Encounter type: initial encounter Cardiac sarcoidosis D86.85 CPT Codes Implantable Defib dual lead programming - [id number] ([id number]) 26 - PROFESSIONAL COMPONENT (1) AICD malfunction Encounter type: initial encounter Qualified Code(s): T82.118A - Breakdown (mechanical) of other cardiac electronic device, initial encounter
--- NOTE | 2020-01-17 17:39 | Electrophysiology Report ---
Date of Service January 17, 2020 Electrophysiology Procedure Electrophysiology Procedure Report Procedure performed: Defibrillation threshold testing Staff greens picker: Kyle Fountain MD Indication: ICD lead malfunction Procedure detail: The patient was informed of the risks benefits and alternatives to the intended procedure and agreed to proceed. He was taken to the post anesthesia care unit in a fasting state. An anesthetic was administered by the anesthesiology serv ice once appropriately anesthetized the patient underwent defibrillation threshold testing. This involved initiation of ventricular fibrillation and defibrillation using his implanted ICD. Subsequent to the procedure the patient was neurologically intact. There were no immediate complications. The patient tolerated procedure well. Findings: Induction of ventricular fibrillation successfully terminated with 25 joules delivered through his implanted ICD. Lead impedance greater than 200 Ohms. Impression: Right ventricular defibrillation lead malfunction likely related to externalized conductor. [facility] Electrophysiology codes ICD Procedure 1: ICD: 73113 EP eval sng/dual ICD
--- NOTE | 2020-01-17 17:48 | Electrocardiogram Report ---
Test Reason : Blood Pressure : / mmHG Vent. Rate : 060 BPM Atrial Rate : 060 BPM P-R Int : 228 ms QRS Dur : 148 ms QT Int : 456 ms P-R-T Axes : 071 -62 -05 degrees QTc Int : 456 ms Atrial-paced rhythm with prolonged AV conduction Right bundle branch block Left anterior fascicular block Bifascicular block Abnormal ECG Confirmed by Kyle Fountain ([id number]) on 01/17/2020 5:47:42 PM Referred By: REFERRED SELF Confirmed By:Ernst Fountain
[2020-01-17] MEDS ORDERED: ROSUVASTATIN CALCIUM 20 MG TAB PO SCH (21:00)
[2020-01-18] MEDS: modafiniL 100 MG TAB PO SCH (08:11)
[2020-01-18] MEDS: allopurinoL 100 MG TAB PO SCH (08:12)
[2020-01-18] MEDS: FLECAINIDE ACETATE 100 MG TABLET PO SCH (08:12)
[2020-01-18] MEDS: carvediloL 25 MG TAB PO SCH (08:12)
[2020-01-18] MEDS: predniSONE 5 MG TAB PO SCH (08:13)
--- NOTE | 2020-01-18 11:18 | Cardiology Progress Note ---
Date of Service January 18, 2020 Assessment & Plan (1) AICD malfunction: (2) Sarcoidosis: (3) Paroxysmal A-fib: Electrophysiology input appreciated. LifeVest ordered and awaiting approval/fitting at this time. I will place a referral to the [facility] for outpatient evaluation by electrophysiology regarding ICD lead malfunction and ICD/lead extraction. Continue current cardiovascular medications as previously ordered. All questions answered to patient satisfaction. He will be discharged once fitted for LifeVest. Subjective Patient seen and examined at the bedside. Feeling well from a cardiovascular perspective. Denies chest pain, shortness of breath, or palpitations. No dysrhythmias on telemetry. Evaluated by electrophysiology. Patient is requesting referral to the [facility] for ICD/lead extraction with imp lantation of a new device. Offers no other concern/complaints at this time. Review of Systems Review of Systems: All systems reviewed & are unremarkable except as noted in HPI & below Physical Exam Constitutional: well developed and well nourished; no acute distress and not ill appearing Eyes: PERRL, conjunctivae normal, anicteric sclerae Respiratory: normal respiratory effort, lungs clear to auscultation Auscultation: no crackles, no rales, no rhonchi and no wheezes Cardiovascular: Rate/Rhythm: regular rate and regular rhythm Heart Sounds: normal S1 and normal S2; no gallop, no murmur and no cardiac rub Palpation: normal PMI Vessels: radial pulses present; no JVD and no carotid bruit Extremities: normal capillary refill; no edema Gastrointestinal (Abdomen): Inspection/Auscultation: abdomen normal to inspection and normal bowel sounds; abdomen not distended Percussion/ Palpation: abdomen soft; abdomen nontender, no guarding and abdomen not rigid Musculoskeletal: Head/Neck/Chest: normocephalic and head atraumatic Extremities: strength 5/5 throughout; no cyanosis, no clubbing and no petechiae Skin: no rashes, warm and dry Neurologic: CN's II-XI intact bilaterally and moves all extremities; no focal motor deficits Speech / Cognition: normal speech Psychiatric: A+Ox3, euthymic affect Results & Data Vital Signs (Past 12 Hours) Vital Signs Temp Pulse Pulse Resp BP Pulse Ox 01/18/20 07:09 36.9 C 62 20 133/86 97 01/18/20 03:14 60 16 94 01/18/20 02:49 36.5 C 61 18 156/89 H 95 (1) AICD malfunction Encounter type: initial encounter Qualified Code(s): T82.118A - Breakdown (mechanical) of other cardiac electronic device, initial encounter
[2020-01-18 15:07] VITALS: TEMP 99; O2SAT 93
--- NOTE | 2020-01-18 15:07 | Hospitalist Progress Note ---
Date of Service January 18, 2020 Assessment & Plan (1) AICD malfunction: (2) Cardiac sarcoidosis: (3) Nonischemic cardiomyopathy: - Patient with history of cardiac sarcoidosis, diagnosed in 2006, followed at [facility], currently following w/Dr. Rice of [facility] cardiology -Presents with possible AICD malfunction Incident Response Coordinator Dr. Rice and copper plate printer Dr. Fountain consulted -Status post defibrillation threshold testing -As per copper plate printer: With defibrillation threshold testing and delivery of high voltage across the lead, the impedance was quite high. This would suggest that the lead is not reliable Total system extraction and reimplantation with an MRI compatible lead suggested -Plan is for patient to be discharged and referred to [facility] for outpatient evaluation regarding ICD lead malfunction and ICD/lead extraction -LifeVest to be fitted prior to discharged from the hospital -Patient to be informed by Dr. Rice's office regarding [facility] appointment Continue usual carvedilol, flecainide continue home prednisone, 12.5 mg daily for sarcoidosis (4) Hyperlipidemia: -Continue home Crestor (5) Prediabetes: -Continue to monitor blood glucose levels (6) SHELL on CPAP: -CPAP at bedtime (7) Paroxysmal A-fib: -Continue home flecainide (8) Narcolepsy: -Continue home modafinil (9) Gout: -Continue home allopurinol DVT ppx - SCDs Code: Full Disposition : DC home today Follow-up with [facility] for ICD lead malfunction and ICD/lead extraction Follow-up with [facility] cardiology clinic as scheduled Admission and Anticipated Discharge Date Admission Date: January 16, 2020 Subjective Follow-up with pacemaker malfunction Seen resting in bed, sitting up, comfortable, not distressed, in good spirits Denies chest pain, palpitation, dizziness Ambulating in the room with no problems No sensation of firing from pacemaker/AICD No other symptoms Review of Systems Review of Systems: All systems reviewed & are unremarkable except as noted in HPI & below Physical Exam Physical Exam: General- oriented x 3, not in distress, speaks in sentences with no effort or accessory muscle use Eyes- anicteric Neck- no JVD Lungs- clear breath sounds bilaterally, no rales/wheezes Heart- normal rate, regular rhythm; no murmurs Abdomen- normal bowel sounds, nondistended, soft, nontender Extremities- no pretibial edema, no calf tenderness Neuro- alert, oriented x 3; no gross focal neurologic deficits Skin- warm & dry Results & Data Results & Data ([facility]) Vital Signs (Past 12 Hours) Vital Signs Temp Pulse Pulse Resp BP Pulse Ox 01/18/20 11:57 36.8 C 60 18 139/83 98 01/18/20 07:09 36.9 C 62 20 133/86 97 01/18/20 03:14 60 16 94 (1) AICD malfunction Encounter type: initial encounter Qualified Code(s): T82.118A - Breakdown (mechanical) of other cardiac electronic device, initial encounter
--- NOTE | 2020-01-18 15:32 | Discharge Summary ---
Date of Service January 18, 2020 Admission HPI Per Admitting Provider 54-year-old male, with history of nonischemic cardiomyopathy secondary to cardiac sarcoidosis, diagnosed in 2006 (initially followed at [facility], currently follows with Dr. Rice of [facility] cardiology), status post dual- chamber ICD, paroxysmal A. fib, paroxysmal VT, hypertension, prediabetes, SHELL on CPAP, who presents with possible AICD malfunction. Patient was working outside today, and then later was doing laundry in the house when he noticed vibration over his chest, due to his pacemaker. He states this usually means that his battery is running low. He presented to the ED for evaluation. He otherwise did not feel any chest pain, palpitations, dizziness, lightheadedness, fevers or chills. Also denies any abdominal pain, nausea or vomiting. He denies exerting himself, and states that is his usual activity. Patient's device was interrogated, and ED provider discussed with tech from [facility] who noted that there is a lead advisory warning on the pacemaker. High-voltage lead is out of range. Recommended admission and interrogation by EP as it may not be functioning properly. ED provider also consulted cardiology, Dr. Shanks, who will be further evaluating the patient with EP tomorrow, and who agrees with the admission. Admission Exam Per Admitting Provider Physical Exam: middle aged male laying in bed, in NAD Constitutional: WD/WN, vitals as above no acute distress and not ill appearing Eyes: PERRL, conjunctivae normal, anicteric sclerae EOM intact bilaterally ENMT: external ear and nose normal, oropharynx normal Neck: trachea midline, no thyromegaly normal visual inspection Respiratory: normal respiratory effort, lungs clear to auscultation Auscultation: no crackles, no rhonchi and no wheezes Cardiovascular: RRR, no murmur, no edema Chest (Breasts): Chest: + pacemaker Gastrointestinal (Abdomen): Inspection/Auscultation: abdomen normal to inspection and normal bowel sounds; abdomen not distended Percussion/Palpation: abdomen soft; abdomen nontender, no guarding and abdomen not rigid Musculoskeletal: no cyanosis or clubbing, extremities motor strength 5/5 Head/Neck/Chest: normocephalic, head atraumatic and neck supple Extremities: extremities normal to inspection Skin: no rashes, warm and dry no lesions and no ulcers Neurologic: PERRL, EOMI, accommodation nl, no face palsy, no dysarthria moves all extremities Psychiatric: A+Ox3, euthymic affect Genitourinary: no CVA tenderness Principal Diagnosis Pacemaker malfunction Discharge Exam General- oriented x 3, not in distress, speaks in sentences with no effort or accessory muscle use Eyes- anicteric Neck- no JVD Lungs- clear breath sounds bilaterally, no rales/wheezes Heart- normal rate, regular rhythm; no murmurs Abdomen- normal bowel sounds, nondistended, soft, nontender Extremities- no pretibial edema, no calf tenderness Neuro- alert, oriented x 3; no gross focal neurologic deficits Skin- warm & dry Discharge Data Allergies Allergy/AdvReac Type Severity Reaction Status Date / Time bee venom protein (honey bee) Allergy Severe ANAPHYLAXIS Verified 01/16/20 20:55 Consultations 01/16/20 20:41 ED Decision to Admit Stat 01/16/20 22:27 Consult Cardiology Routine 01/17/20 10:04 Consult Cardiac Electrophysiology Routine Procedures Performed Operation Date: 01/17/20 16:15 Actual Procedures p ICD Generator Test Initial - Erickson Fountain MD s Interrogation of ICD - Erickson Fountain MD Hospital Course (1) AICD malfunction: (2) Cardiac sarcoidosis: (3) Nonischemic cardiomyopathy: - Patient with history of cardiac sarcoidosis, diagnosed in 2006, followed at [facility], currently following w/Dr. Rice of [facility] cardiology -Presents with possible AICD malfunction Presser Hand Dr. Rice and plumber assistant Dr. Fountain consulted -Status post defibrillation threshold testing -As per plumber assistant: With defibrillation threshold testing and delivery of high voltage across the lead, the impedance was quite high. This would suggest that the lead is not reliable Total system extraction and reimplantation with an MRI compatible lead suggested -Plan is for patient to be discharged and referred to [facility] for outpatient evaluation regarding ICD lead malfunction and ICD/lead extraction -LifeVest to be fitted prior to discharged from the hospital -Patient to be informed by Dr. Rice's office regarding [facility] appointment Continue usual carvedilol, flecainide continue home prednisone, 12.5 mg daily for sarcoidosis (4) Hyperlipidemia: -Continue home Crestor (5) Prediabetes: -Continue to monitor blood glucose levels (6) SHELL on CPAP: -CPAP at bedtime (7) Paroxysmal A-fib: -Continue home flecainide (8) Narcolepsy: -Continue home modafinil (9) Gout: -Continue home allopurinol DVT ppx - SCDs Code: Full Disposition : DC home today Follow-up with [facility] for ICD lead malfunction and ICD/lead extraction Follow-up with [facility] cardiology clinic as scheduled Total Time Total Time Spent Total Time Spent (In Minutes): 30 minutes Discharge Plan Discharge Items Patient Disposition: Home - Self-Care Reason For Visit: PACEMAKER MALFUNCTION Discharge Diagnosis: AICD/LEAD MALFUNCTION Activity: Resume your previous activity Activity Comment: Resume activity as tolerated Lifting: Wait until after follow-up appointment Exercise/Sports: Wait until after follow-up appointment Driving/Machine Use: No driving until reevaluated and allowed by the wall scraper Non-emergency contact: Primary Care Provider and Presser Hand Call non-emergency contact if: you have any medication questions and you have a fever Follow-up/Referrals: John Rice DO [Presser Hand] - Sean Madera MD [Primary Care Provider] - Diet: Heart Healthy Addtl Attending Provider Instructions: Resume previous medications. Dr. Rice's office will be calling you soon regarding your referral to the plumber assistant of [facility]. Please follow-up with Dr. Rcie as scheduled. Follow up with Primary Care Physician as scheduled. Pending Studies at Discharge: Yes Studies:: AICD/lead extraction Stand-Alone Forms: My [employer], Smoking Cessation Medications and DC Order Prescriptions: Continued carvedilol 25 mg tablet 25 mg PO BID RF: 0 prednisone 5 mg tablet 15 mg PO DAILY RF: 0 sildenafil 100 mg tablet 100 mg PO DIRECTED PRN (Reason: Erectile Dysfunction) RF: 0 baclofen 10 mg tablet 10 mg PO TID PRN (Reason: MUSCLE SPASMS) RF: 0 flecainide 100 mg tablet 100 mg PO BID RF: 0 omeprazole 20 mg capsule,delayed release(DR/EC) 20 mg PO DAILY PRN (Reason: HEARTBURN/INDIGESTION) RF: 0 epinephrine [EpiPen] 0.3 mg/0.3 mL Auto-Injector 0.3 mg IM DIRECTED PRN (Reason: Allergic Reaction) RF: 0 modafinil 100 mg tablet 200 mg PO DAILY RF: 0 rosuvastatin 40 mg tablet 40 mg PO QPM RF: 0 Discharge Orders: Discharge Order (Routine); Ordered 01/18/20 Ordered By: Ti Reid Admission Data Admit Date/Time: 01/16/20 21:06 Attending Provider: Ti Reid Admit Provider: Don Harrison Primary Care Provider: Sean Madera Other Providers: Albaro Jiang ; Darvin Shanks ; Erickson Fountain Other Interventions: Discharge Summary Assessment (RN) Last Done: 01/18/20 18:25 DC Date/Time DO NOT enter until pt leaves facility: 01/18/20 19:23
--- NOTE | 2020-01-18 16:33 | Cardiology Progress Note ---
Date of Service January 18, 2020 Assessment & Plan (1) AICD malfunction: detection and therapy programming for the patient's ICD was deactivated. Pacing function remains active. In this setting the device will not deliver any therapy for life-threatening ventricular arrhythmias. Patient will be maintained on telemetry until the external defibrillator arrive at which point he could be safely discharged. Subjective The patient is feeling well today and anticipating arrival of a life vest. Results & Data Vital Signs (Past 12 Hours) Vital Signs Temp Pulse Resp BP Pulse Ox 01/18/20 15:06 37.2 C 63 21 114/81 93 01/18/20 11:57 36.8 C 60 18 139/83 98 01/18/20 07:09 36.9 C 62 20 133/86 97 (1) AICD malfunction Encounter type: initial encounter Qualified Code(s): T82.118A - Breakdown (mechanical) of other cardiac electronic device, initial encounter
[2020-01-18 18:26] VITALS: BP 153/76; PULSE 62
== END 2020-01-18 19:23 | disposition home or self-care (01) | DRG 309 ==
LOC: ED 19:40 → 2S 21:06